=== PATIENT | male | born 1965 | race Caucasian/White ===

== ENCOUNTER 2021-09-14 12:24 | Emergency (ER) | payer BC ==
[2021-09-14] MEDS ORDERED: Lidocaine 1% with EPINEPHrine 1:100,000 50 ML MDV INFILT ONE (13:25)
[2021-09-14] MEDS ORDERED: Bacitracin Oint 1 GM U/D Packet TOP ONE (13:25)
[2021-09-14] MEDS ORDERED: Diphtheria,Pertussis(Acell),Tetanus Vaccine 0.5 ML Syringe IM ONE (13:26)
== END 2021-09-14 13:49 | disposition home or self-care (01) ==
LOC: JP.ED 12:24
DX: S61.231A Puncture wound without foreign body of left index finger without damage to nail, initial encounter (principal); Z90.49 Acquired absence of other specified parts of digestive tract; Z79.899 Other long term (current) drug therapy; Z79.82 Long term (current) use of aspirin; Z88.0 Allergy status to penicillin; Z23 Encounter for immunization; W45.8XXA Other foreign body or object entering through skin, initial encounter
CPT/HCPCS: 90471; 90715; 99283